=== PATIENT | female | born 1980 | race Caucasian/White ===

== ENCOUNTER 2019-04-23 14:50 | Emergency (ER) | payer OTHER ==
[~2019-04-23] VITALS: Ht 172.7 cm; Wt 95.7 kg
[2019-04-23 15:08] VITALS: Ht 172.7 cm; Wt 95.7 kg
[2019-04-23 17:07] LABS: BASOPHIL % 1.3 % (0-2); PLATELET COUNT 177 x10^3mcL (130-400); RED CELL DISTRIBUTION WIDTH 13.4 % (11.5-14.5)
[2019-04-23 17:15] LABS: CALCIUM 10.4 mg/dL (8.5-10.1); CARBON DIOXIDE 30.9 mmol/L (21-32); CHLORIDE SERUM 98 mmol/L (98-107); CREATININE SERUM 0.7 mg/dL (0.6-1.0); GFR1 > 60 mL/min; GLUCOSE SERUM 139 mg/dL (74-106); POTASSIUM SERUM 3.1 mmol/L (3.5-5.1); SODIUM SERUM 138 mmol/L (136-145)
[2019-04-23 17:20] LABS: ALBUMIN 3.6 g/dL (3.4-5.0); ALKALINE PHOSPHATASE 142 U/L (46-116); ALT/SGPT 25 U/L (14-59); AST/SGOT 64 U/L (15-37); BILIRUBIN DIRECT 0.38 mg/dL (0.0-0.2); BILIRUBIN TOTAL 1.4 mg/dL (0.20-1.00); LIPASE 114 IU/L (73-393)
[2019-04-23 17:21] LABS: TOTAL PROTEIN, SERUM 8.9 g/dL (6.4-8.2)
[2019-04-23 19:57] VITALS: BP 145/80
== END 2019-04-23 19:57 | disposition home or self-care (01) ==
LOC: ED 14:50
PROVIDERS: Emergency Medicine
DX: R11.2 Nausea with vomiting, unspecified (principal)
CPT/HCPCS: 36415; Q0162

== ENCOUNTER 2020-01-25 15:30 | Emergency (ER) | payer OTHER ==
[~2020-01-25] VITALS: Ht 172.7 cm; Wt 103.4 kg
[2020-01-25 15:34] VITALS: Ht 172.7 cm; Wt 103.4 kg
[2020-01-25 16:03] VITALS: BP 133/79
== END 2020-01-25 16:03 | disposition home or self-care (01) ==
LOC: ED 15:30
DX: N39.0 Urinary tract infection, site not specified (principal)